=== PATIENT | female | born 2000 | race Caucasian/White ===

== ENCOUNTER 2024-02-17 19:59 | Emergency (ER) | payer SELFPAY ==
[2024-02-17] MEDS: OLANZapine 10 MG VIAL IM ×2 (20:12→22:24)
--- NOTE | 2024-02-17 20:12 | ED_ITS ---
HPI - General Adult General Chief complaint: Psychiatric Symptoms Stated complaint: etoh,combative, with CPD Time Seen by Provider: 02/17/24 20:04 History of Present Illness ED Provider: Neal BATRES narrative: The patient is a 23-year-old female who was brought to the hospital by ambulance. The available history is that she had come home from a bar to her parents place. Parents felt that she was behaving in an extremely agitated manner and was making comments that she was going to kill herself. Apparently she has recently broken up with a boyfriend. Parents called 911. Paramedics and police responded. The patient was extremely agitated and required restraints in route to the hospital. The patient is agitated and incoherent and cannot contribute to the history. Related Data Allergies Allergy/AdvReac Type Severity Reaction Status Date / Time Unable to Assess Allergy Verified 02/17/24 20:36 Review of Systems 2 Review of Systems: Yes Unobtainable due to mental status PMFSH Social History Social History Do you have a plan to hurt others: No Plan Physical Exam ED Vital Signs: Vital Signs - 24 hr 02/17/24 20:31 02/17/24 20:58 Temperature 98.8 F 97.9 F Pulse Rate 100 100 Respiratory Rate 18 18 Blood Pressure 120/80 101/79 Pulse Oximetry 96 95 Oxygen Delivery Method Room Air Room Air BMI result Body Mass Index 23.3 Const Other: The patient is a 23-year-old female who arrived profoundly agitated and combative. She has been placed in restraints by paramedics in police. Apparently she has been attempting to bite and spit it EMS. She could not be engaged in any coherent manner. HENMT Other: No facial asymmetry. Mucous membranes are moist. The airway is clear. Eyes Other: Pupils round equal, conjunctivae clear, extraocular movements intact. Neck Neck: Yes full ROM and Yes supple Resp Effort & Inspection: normal respiratory effort Auscultation: clear to auscultation bilaterally Cardio Rate: regular rate Rhythm: regular rhythm Heart sounds: S1 normal heart sound present and S2 normal heart sound present GI Other: The abdomen is soft and not apparently tender Skin Other: Skin is pale and dry. Neuro Other: The patient was initially awake and agitated and screaming. She seemed intoxicated and very upset. Face is symmetrical. Pupils are round equal. Extraocular movements seem intact. She had some mild slurring of speech but no collette dysarthria. She seemed to move all 4 extremities symmetrically and appropriately. She did not seem to have a focal neurological deficit. Extrem Other: No signs of trauma to the extremities Medications Administered Discontinued Medications Generic Name Dose Route Start Last Admin Trade Name Anette PRN Reason Stop Dose Admin Lorazepam 2 mg 02/17/24 22:15 02/17/24 22:24 Lorazepam 2 Mg/Ml Vial IM 02/17/24 22:16 2 mg ONCE ONE Administration Midazolam HCl 8 mg 02/17/24 20:30 02/17/24 20:15 Midazolam Hcl 5 Mg/Ml Vial IM 02/17/24 20:31 8 mg ONCE ONE Administration Olanzapine 10 mg 02/17/24 20:05 02/17/24 20:12 Olanzapine 10 Mg Vial IM 02/17/24 20:06 10 mg ONCE ONE Administration Olanzapine 10 mg 02/17/24 22:15 02/17/24 22:24 Olanzapine 10 Mg Vial IM 02/17/24 22:16 10 mg ONCE ONE Administration Medical Decision Making Medical Decision Making MDM Narrative: The patient arrived acutely agitated. She had apparently been at a bar. The report is that she had a recent break-up with her boyfriend and that she was very upset. The report was also that she had made suicidal statements to her family. The patient arrived in restraints applied by paramedics accompanied by police officers. The patient was agitated and could not be engaged in any meaningful way. She was therefore transferred from the EMS restraints to hospital restraints on the hospital bed. She was given 8 mg of IM midazolam and 10 mg of IM olanzapine. She seemed somewhat less agitated as a result of these medication but she was still quite restless and was ultimately given a 2nd dose of 10 mg of IM olanzapine and 2 mg of IM lorazepam. Not long after administration of this additional medication we were able to take her out of restraints. She was phlebotomized. She has an elevated white count that I suspect is secondary to stress. Ethanol level is 150. Chemistries are unremarkable. I believe the patient is medically stable and should be able to be evaluated by the care team once her alcohol is worn off and her sedative medications have worn as well. The patient will be placed in physician observation. Lab Data 02/17/24 23:19 02/17/24 23:19 Labs: Lab Results 02/17/24 Range/Units 23:19 WBC 16.3 H (4.8-10.8) X10*3/uL RBC 4.38 (4.20-5.50) X10*6/uL Hgb 13.7 (12.0-16.0) g/dl Hct 38.4 (37.0-47.0) % MCV 87.7 (80.0-98.0) fL MCH 31.3 (27.0-33.0) pg MCHC 35.7 H (31.0-35.0) g/dl RDW 12.4 (11.0-16.0) % Plt Count 241 (160-400) X10*3/uL MPV 9.3 L (9.4-12.3) fL Immature Gran % (Auto) 0.3 (0.0-0.4) % Neut % (Auto) 82.8 H (45-73) % Lymph % (Auto) 10.7 L (20-40) % Rutherford % (Auto) 6.1 (2-11) % Eos % (Auto) 0.0 (0-4) % Baso % (Auto) 0.1 (0-2) % Lymph # (Auto) 1.8 (1.2-4.9) X10*3/uL Rutherford # (Auto) 1.0 (0.1-1.2) X10*3/uL Eos # (Auto) 0.0 (0.0-0.4) X10*3/uL Baso # (Auto) 0.0 (0.0-0.2) X10*3/uL Abs Immat Gran (auto) 0.05 H (0.00-0.03) X10*3/uL Absolute Neuts (auto) 13.5 H (2.0-8.3) x10*3/uL Absolute Nucleated RBC 0.000 (0.0-0.012) X10*3/uL Nucleated RBC % (auto) 0.0 (0.0-0.2) /100WBC Sodium 145 (135-145) mmol/L Potassium 3.3 (3.3-5.1) mmol/L Chloride 107 (96-108) mmol/L Carbon Dioxide 24 (22-29) mmol/L Anion Gap 17 (12-20) BUN 7 L (9-16) mg/dL Creatinine 0.75 (0.5-1.4) mg/dL Estim Creat Clear Calc 105.8 Estimated GFR > 60 Random Glucose 106 (60-115) mg/dL Calcium 9.0 (8.4-10.2) mg/dL Total Bilirubin 0.4 (0.0-1.0) mg/dL Direct Bilirubin 0.1 (0.0-0.5) mg/dL AST 35 H (5-31) U/L ALT 21 (0-31) U/L Alkaline Phosphatase 52 (39-117) U/L Total Protein 7.0 (6.5-8.0) g/dL Albumin 4.3 (3.5-5.0) g/dL Beta HCG, Quant < 2 mIU/mL Ethyl Alcohol 150 mg/dL Critical Care Time Critical Care Time Critical Care Time: Yes Total Critical Care Time: 35 Attestation: The patient was critically ill with a high probability of imminent or life- threatening deterioration. ?I spent greater than 30 minutes of discontinuous time evaluating the patient, delivering critical care at the bedside, discussing evaluating data with consultants. ?Critical care time does not include time spent performing separately billable procedures or teaching. ?Time spent performing critical care with 35 minutes. Discharge Plan Discharge Clinical Impression: Agitation, Suicidal ideation, Alcohol intoxication Patient Disposition: Still a Patient Interventions: Gentry-Suicide Risk Severity Scale Last Done: 02/17/24 20:58
[2024-02-17] MEDS: Midazolam HCl 5 MG/ML VIAL 8 MG IM (20:15)
[2024-02-17 20:31] VITALS: BP 120/80; PULSE 100; RESP 18; TEMP 37.1; O2SAT 96; BMI 23.3
--- NOTE | 2024-02-17 20:33 | MHC.CARE ---
CARE team spoke with [place] [employer] officers and [facility] medics that came in with the pt. Per report- the pt had arrived to her father's home in [place] approximately one hour before her father called 911 due to the pt making statements about wanting to jump off of a bridge to kill herself. Pt had been out at a bar and was upset due to finding out that her boyfriend had cheated on her. PD reported that she was cooperative and calm while they were in the house and explaining that she would have to go to the hospital, however once they got outside she became combative and resistant, which resulted in first responders having to go hands on, and she arrived in handcuffs and restrained on the stretcher. Pt was transitioned from the stretcher to the bed in [facility] and placed in soft restraints and given IM medications due to her ongoing agitation and combative behavior. This clinician spoke with the pt to try to calm her down and attempted to give her water, however she was too dysregulated to be able to drink through the straw. Shortly after, pt succumbed to the sedation of the medications. CARE team will follow up with pt for assessment in the morning.
--- NOTE | 2024-02-17 20:34 | MHC.CARE ---
Pt's mother contacted CARE Team ([phone]) to inquire about the status of her daughter. She reported that Pt's brother contacted her to to tell her Pt was being transported to [facility]. She is unaware of what transpired immediately prior to transport but reported that Pt and her boyfriend got into an argument and Pt was dropped off at her father's house and had a few drinks. Pt's mom lives in [place] and strongly expresses that Pt's father is not the most supportive of Pt. Pt's father's name is Adolfo ([phone]).
[2024-02-17 20:58] VITALS: BP 101/79; PULSE 100; RESP 18; TEMP 36.6; O2SAT 95
[2024-02-17] MEDS: LORazepam 2 MG/ML VIAL IM (22:24)
[2024-02-17 23:23] LABS: MANUAL DIFF FLAG NO
[2024-02-17 23:25] LABS: Basophils Percent Auto 0.1 % (0-2); Hematocrit 38.4 % (37.0-47.0); Hemoglobin 13.7 g/dl (12.0-16.0); Imm Gran Abs Auto 0.05 X10*3/uL (0.00-0.03); Imm Gran Pct Auto 0.3 % (0.0-0.4); Lymphocytes Absolute Auto 1.8 X10*3/uL (1.2-4.9); Lymphocytes Percent Auto 10.7 % (20-40); Mean Corpuscular HGB Conc 35.7 g/dl (31.0-35.0); Mean Corpuscular Hemoglobin 31.3 pg (27.0-33.0); Mean Corpuscular Volume 87.7 fL (80.0-98.0); Mean Platelet Volume 9.3 fL (9.4-12.3); Monocytes Percent Auto 6.1 % (2-11); Neutrophils Absolute Auto 13.5 x10*3/uL (2.0-8.3); Neutrophils Percent Auto 82.8 % (45-73); Platelet Count 241 X10*3/uL (160-400); Red Blood Count 4.38 X10*6/uL (4.20-5.50); Red Cell Distribution Width 12.4 % (11.0-16.0); White Blood Count 16.3 X10*3/uL (4.8-10.8)
[2024-02-17 23:46] LABS: Alanine Aminotransferase 21 U/L (0-31); Albumin Level 4.3 g/dL (3.5-5.0); Alkaline Phosphatase 52 U/L (39-117); Anion Gap 17 (12-20); Aspartate Amino Transferase 35 U/L (5-31); Bilirubin Direct 0.1 mg/dL (0.0-0.5); Bilirubin Total 0.4 mg/dL (0.0-1.0); Blood Urea Nitrogen 7 mg/dL (9-16); Carbon Dioxide 24 mmol/L (22-29); Chloride 107 mmol/L (96-108); Creatinine Clr Calc Pharmacy 105.8; Estimated Glomerular Filt Rate > 60; Ethanol 150 mg/dL; Glucose Random 106 mg/dL (60-115); Potassium 3.3 mmol/L (3.3-5.1); Sodium 145 mmol/L (135-145)
[2024-02-17 23:48] LABS: HCG Quantitative < 2 mIU/mL
--- NOTE | 2024-02-17 23:51 | PC.NURSE ---
1;1 the patient for the time being d/t sedating medications
--- NOTE | 2024-02-18 03:19 | PC.NURSE ---
Took over care from RN Quiana, pt tearful at this time, assist with adjusting hospital attire, warm blanket given, pt redirect and reassure of safety at this time.
[2024-02-18 07:58] VITALS: BP 102/71; PULSE 116; RESP 16; TEMP 37.2; O2SAT 97
--- NOTE | 2024-02-18 09:45 | MHC.CARE ---
Pt does not meet the criteria for IPLOC and will be discharged home. She declined referrals and services. Provider in agreement.
[2024-02-18 10:20] VITALS: BP 108/64; PULSE 87; RESP 14; TEMP 37.1; O2SAT 99
== END 2024-02-18 10:22 | disposition home or self-care (01) ==
PROVIDERS: Emergency Provider Emergency Medicine
DX: R45.1 Restlessness and agitation (principal); R45.6 Violent behavior; R45.851 Suicidal ideations; F10.920 Alcohol use, unspecified with intoxication, uncomplicated; Y90.6 Blood alcohol level of 120-199 mg/100 ml; Z72.89 Other problems related to lifestyle; Z65.8 Other specified problems related to psychosocial circumstances
CPT/HCPCS: 36415; 80048; 80076; 80307; 84702; 85025; 96372; 99284; 99285; J2060; J2250; J2359; S9485